=== PATIENT | male | born 1955 | race Caucasian/White ===

== ENCOUNTER 2016-12-15 11:01 | Emergency (ER) | payer OTHER ==
[~2016-12-15] VITALS: Ht 170.2 cm; Wt 87.1 kg
[~2016-12-15 11:01] MED LIST: ALLOPURINOL300 M1 PO; ALPRAZOLAM0.5 M4 PO; ASPIR 8181 MG PO; BYSTOLIC2.5 M1 PO; DOCUSATE SODIU100 MG PO; HYDROCODONE/ACE1 TA1 PO; PERCOCET 325 MG1 TA2 PO; VALACYCLOVIR1 GM PO; ZOFRAN ODT4 MG SL
--- NOTE | 2016-12-15 11:50 | ED GENERAL ADULT ---
History of Present Illness General Chief Complaint: Low Back Pain/Injury Stated Complaint: BACK PAIN Source: patient, family, old records Exam Limitations: no limitations Vital Signs & Intake/Output Vital Signs & Intake/Output Vital Signs Date Time Temp Pulse Resp B/P Pulse O2 O2 Flow FiO2 Ox Delivery Rate 12/15 1211 98.7 80 18 132/76 100 Room Air 12/15 1105 97.9 89 16 142/82 98 Room Air ED Intake and Output 12/16 0000 12/15 1200 Intake Total 0 Output Total Balance 0 Intake, Oral 0 Patient 192 lb Weight Allergies Coded Allergies: fentanyl (Severe, RASH FROM PATCH COULD BE ADHESIVE 12/15/16) Triage Note: 61 Y/O MALE C/O R SHOULDER PAIN AND L FLANK PAIN. STATES HE HAS A KNOWN 8MM STONE AND PAIN HAS BEEN WORSENING SINCE THIS AM. ALSO HAS PAIN IN R SHOULDER S/P LIFTING AUTISTIC SON YESTERDAY. HAS TAKEN 3 TABS PERCOCET SINCE 0700 TODAY (LAST DOSE 1000) WITH NO RELIEF. DUE FOR CT [facility]AN [facility]. Triage Nurses Notes Reviewed? yes HPI: Patient is a 61 year old male presents complaining of pain to his right scapula. Pain began this morning. Pain is a sharp pain that radiates up to his neck, down his back and down his right upper extremity. Pain worsens with shoulder range of motion and with palpation. Patient reports he was lifting his son yesterday who is approximately 160 pounds, did not feel a specific injury at that time. Patient has been taking Tylenol with codeine with mild improvement. Patient has taken 3 doses today. Pain is currently an 8 out of 10, was 10 out of 10 prior to arrival. Patient also complaining of bilateral flank pain. Patient has a known 8 mm ureteral stone and 3 mm right ureteral stone. Patient is scheduled to have a CT scan at 1:30 PM today for further surveillance and evaluation. Pain to the left flank is currently 4 out of 10. Pain improves with the Tylenol with Codeine. (LISS TORRES) Reconcile Medications Allopurinol 300 MG TABLET 1 TAB PO DAILY GOUT (Reported) Alprazolam 0.5 MG TABLET 1 TAB PO BIDP PRN ANXIETY (Reported) Bupropion HCl (Bupropion XL) 300 MG TAB.ER.24H 1 TAB PO QAM MENTAL HEALTH ( Reported) Cyclobenzaprine HCl 10 MG TABLET 1 TAB PO TID PRN MUSCLE RELAXANT MAY CAUSE DROWSINESS Diazepam (Valium) 5 MG TABLET 1-2 TAB PO Q6P PRN muscle strain/spasm Hydrochlorothiazide 12.5 MG CAPSULE 1 CAP PO DAILY WATER PILL (Reported) Ibuprofen 600 MG TABLET 1 TAB PO Q6PRN PRN pain with food Nebivolol HCl (Bystolic) 2.5 MG TABLET 1 TAB PO DAILY HEART (Reported) Oxycodone HCl/Acetaminophen (Percocet 5-325 MG Tablet) 5 MG-325 MG TABLET 1-2 TAB PO Q6P PRN severe pain Sertraline HCl 50 MG TABLET 1 TAB PO DAILY MENTAL HEALTH (Reported) (HERNAN MARTÍNEZ,WESTON) Past History Travel History Traveled to [place] past 21 day No Medical History Any Pertinent Medical History? 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 No (LISS TORRES) Review of Systems Review of Systems Constitutional: Denies: chills, fever. EENTM: Reports: no symptoms. Respiratory: Denies: cough, short of breath. Cardiovascular: Denies: chest pain. GI: Denies: nausea, vomiting. Genitourinary: Reports: pain (current renal colic). Musculoskeletal: Reports: see HPI. Skin: Reports: no symptoms. Neurological/Psychological: Reports: no symptoms. Hematologic/Endocrine: Reports: no symptoms. Immunologic/Allergic: Reports: no symptoms. (LISS TORRES) Physical Exam Physical Exam General Appearance: well developed/nourished, alert, awake Head: atraumatic, normal appearance Eyes: Bilateral: normal appearance. Ears, Nose, Throat: normal pharynx, hearing grossly normal Neck: normal inspection, supple, full range of motion, no midline tenderness Respiratory: normal breath sounds, chest non-tender, no respiratory distress, lungs clear Cardiovascular: regular rate/rhythm Peripheral Pulses: 2+ radial (R) Gastrointestinal: soft, non-tender Back: point tenderness over the right medial trapezius muscle. Extremities: mild tenderness right posterior shoulder. Full range of motion. Pain increases with full abduction and flexion. Neurologic/Psych: no motor/sensory deficits, awake, alert, oriented x 3, normal gait, normal mood/affect Skin: intact, normal color, warm/dry Lymphatic: no anterior cervical cata Core Measures ACS in differential dx? No CVA/TIA Diagnosis: No Severe Sepsis Present: No Septic Shock Present: No (LISS TORRES) Progress Differential Diagnoses I considered the following diagnoses in my evaluation of the patient: Muscle strain, rotator cuff injury, nerve impingement, acromioclavicular separation, renal colic, biliary colic Plan of Care: Patient requesting injection to the area of his upper back that has the majority of the pain. Procedure note: Trigger point injection: Prepped area with chlorhexidine wipe. 1% lidocaine 3 mL injected to right medial mid trapezius muscle with improvement of patient's pain. Initial ED EKG: none (LISS TORRES) Departure Departure Time of Disposition: 120 Disposition: HOME OR SELF CARE Condition: Stable Clinical Impression Primary Impression: Trapezius strain Qualifiers: Encounter type: initial encounter Laterality: right Qualified Code: S46.811A - Strain of other muscles, fascia and tendons at shoulder and upper arm level, right arm, initial encounter Referrals: LUIS A MARTÍNEZ,CATIE Matson (PCP/Family) Additional Instructions: Rest, apply heat the affected area for 20 minutes 4-5 times a day. Follow up with your primary care doctor if no improvement within 2-3 days. Return to the emergency department if numbness, weakness, or worsening of symptoms. Departure Forms: Customer Survey General Discharge Information Prescriptions: Current Visit Scripts Cyclobenzaprine HCl 1 TAB PO TID PRN MUSCLE RELAXANT #20 TAB MAY CAUSE DROWSINESS (LISS TORRES) PA/CENTRAL STERILIZATION TECHNICIAN Co-Sign Statement Statement: ED Attending supervision documentation- [] I saw and evaluated the patient. I have also reviewed all the pertinent lab results and diagnostic results. I agree with the findings and the plan of care as documented in the PA's/CENTRAL STERILIZATION TECHNICIAN's documentation. [X] I have reviewed the ED Record and agree with the PA's/CENTRAL STERILIZATION TECHNICIAN's documentation. [] Additions or exceptions (if any) to the PAs/CENTRAL STERILIZATION TECHNICIAN's note and plan are summarized below: [] (HERNAN MARTÍNEZ,WESTON) Critical Care Note Critical Care Note Critical Care Time: non-applicable (RYAN WASHINGTON,LISS)
[2016-12-15] MEDS ORDERED: SERTRALINE HCL50 MG PO (12:07)
[2016-12-15] MEDS ORDERED: HYDROCHLOROTH12.5 M3 PO (12:08)
[2016-12-15] MEDS ORDERED: BUPROPION XL300 M1 PO (12:08)
[2016-12-15] MEDS ORDERED: CYCLOBENZAPRINE10 M1 PO (12:10)
[2016-12-15 12:11] VITALS: BP 132/76
[2016-12-16] MEDS ORDERED: PERCOCET 5-3251 EACH PO (08:25)
[2016-12-16] MEDS ORDERED: VALIUM5 M2 PO (08:25)
[2016-12-16] MEDS ORDERED: IBUPROFEN600 M1 PO (08:25)
== END 2016-12-15 12:10 ==
LOC: ERH 11:01
DX: S46.911A Strain of unspecified muscle, fascia and tendon at shoulder and upper arm level, right arm, initial encounter (principal); X58.XXXA Exposure to other specified factors, initial encounter

== ENCOUNTER 2016-12-15 21:55 | Emergency (ER) | payer OTHER ==
[~2016-12-15] VITALS: Ht 170.2 cm; Wt 87.1 kg
[~2016-12-15 21:55] MED LIST changes: +BUPROPION XL300 M1 PO; +CYCLOBENZAPRINE10 M1 PO; +HYDROCHLOROTH12.5 M3 PO; +SERTRALINE HCL50 MG PO
--- NOTE | 2016-12-15 23:45 | ED NECK/BACK PAIN COMPLAINT ---
History of Present Illness General Chief Complaint: Low Back Pain/Injury Stated Complaint: BACK PAIN Source: patient, family, old records Exam Limitations: no limitations Vital Signs & Intake/Output Vital Signs & Intake/Output Vital Signs Date Time Temp Pulse Resp B/P Pulse O2 O2 Flow FiO2 Ox Delivery Rate 12/16 0807 98.2 68 18 127/84 99 Room Air 12/16 0616 96.2 64 20 124/76 98 Room Air 12/16 0035 97.1 74 20 112/67 98 Room Air 12/15 2237 81 22 132/76 12/15 2204 98.2 77 18 126/85 96 Room Air ED Intake and Output 12/16 0000 12/15 1200 Intake Total 30 Output Total Balance 30 Intake, Oral 30 Patient 192 lb Weight Allergies Coded Allergies: fentanyl (Severe, RASH FROM PATCH COULD BE ADHESIVE 12/15/16) Triage Note: PT TO ED C/O CONTINUED RT SHOULDER PAIN THAT GOES DOWN ARM GIVING HIM WITH TINGELING AND BURNING IN HIS FINGERS, SINCE 8 AM THIS AM. WAS SEEN FOR SAME THIS AM. HAD CT TODAY. TOOK FLEXERIL. BP 126/85 AND HR 77. PT STATES "I'M IN [place]" Triage Nurses Notes Reviewed? yes HPI: Earlier this morning the patient's autistic son was having a fit and threw himself on the floor. The patient pulled him up and felt a sudden pulling sensation in the posterior aspect of his right shoulder. Patient was seen here in the emergency room and was prescribed Flexeril and then sent home. The pain is escalated and is now radiating down his right arm and his right fingers are feeling to feel tingly. Patient has Tylenol with Codeine at home from prior kidney stones and has taken multiple doses of that as well as a Flexeril as prescribed and the pain continues to escalate and is currently 10 out of 10. Patient was unable to sleep because the pain. The pain is constant and is throbbing but aching in nature. It radiates as noted above. There are no mitigating factors and a Little bit worse when he moves his right shoulder. (LAMBERTO MARTÍNEZ,CHARLENE Hanson) Reconcile Medications Allopurinol 300 MG TABLET 1 TAB PO DAILY GOUT (Reported) Alprazolam 0.5 MG TABLET 1 TAB PO BIDP PRN ANXIETY (Reported) Bupropion HCl (Bupropion XL) 300 MG TAB.ER.24H 1 TAB PO QAM MENTAL HEALTH ( Reported) Cyclobenzaprine HCl 10 MG TABLET 1 TAB PO TID PRN MUSCLE RELAXANT MAY CAUSE DROWSINESS Diazepam (Valium) 5 MG TABLET 1-2 TAB PO Q6P PRN muscle strain/spasm Hydrochlorothiazide 12.5 MG CAPSULE 1 CAP PO DAILY WATER PILL (Reported) Ibuprofen 600 MG TABLET 1 TAB PO Q6PRN PRN pain with food Nebivolol HCl (Bystolic) 2.5 MG TABLET 1 TAB PO DAILY HEART (Reported) Oxycodone HCl/Acetaminophen (Percocet 5-325 MG Tablet) 5 MG-325 MG TABLET 1-2 TAB PO Q6P PRN severe pain Sertraline HCl 50 MG TABLET 1 TAB PO DAILY MENTAL HEALTH (Reported) (FLAKITA ELIZALDE MD) Past History Travel History Traveled to [place] past 21 day No Medical History Any Pertinent Medical History? 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 No (LAMBERTO MARTÍNEZ,CHARLENE Hanson) Review of Systems Review of Systems Constitutional: Reports: no symptoms. Eyes: Reports: no symptoms. Ears, Nose, Throat, Mouth: Reports: no symptoms. Respiratory: Reports: no symptoms. Cardiovascular: Reports: no symptoms. Gastrointestinal/Abdominal: Reports: no symptoms. Musculoskeletal: Reports: see HPI, back pain. Skin: Reports: no symptoms. Neurological/Psychological: Reports: no symptoms. All Other Systems: Reviewed and Negative (LAMBERTO MARTÍNEZ,CHARLENE Hanson) Physical Exam Physical Exam General Appearance: well developed/nourished, alert, awake, anxious, severe distress Head: atraumatic, normal appearance Eyes: Bilateral: PERRL, EOMI. Ears, Nose, Throat, Mouth: hearing grossly normal, moist mucous membrane Neck: normal inspection, supple, full range of motion, no midline tenderness Respiratory: normal breath sounds, no respiratory distress, lungs clear Cardiovascular: regular rate/rhythm, normal peripheral pulses Gastrointestinal: normal bowel sounds, soft, non-tender Back: normal inspection, muscle spasm, no vertebral tenderness Extremities: non-tender, normal range of motion Neurologic/Psych: awake, alert, oriented x 3, normal mood/affect Skin: intact, normal color, warm/dry (LAMBERTO MARTÍNEZ,CHARLENE Hanson) Progress Differential Diagnosis: C spine injury, herniated disc, myofascial strain Plan of Care: Orders Procedure Date/time Status Regular Diet 12/16 B Active Durable Medical Equipment 12/16 0828 Active Hand-Off Endorsed To: FLAKITA ELIZALDE MD Endorsed Time: 0700 Pending: CT Comments: PT'S IS VERY UPSET THAT ALL WE CAN DO IS GIVE HIM VALIUM AND NSAIDS AND NOT GET THE MRI TONIGHT AND THAT WE DON'T SEEM TO REALIZE THAT HE IS IN PAIN. I HAVE SPOKEN WITH HER AT LENGTH AND ASKED HER FOR OTHER SUGGESTIONS. PT IS UNDERSTANDING OF THE TREATMENT PLAN AND AGREES WITH IT. Patient states that he is feeling slightly better after the Valium and Toradol. The pain had decreased down to a 6 out of 10 however when he sat up and again increased to an 8 out of 10. Patient advised just to lay down and take it easy and we will reevaluate him. 12/16/2016 2:23:52 AM: Patient is sleeping comfortably. 12/16/2016 5:55:52 AM: Patient states that the Valium helped him sleep a little bit however he still in 10 out of 10 pain and continues to have the tingling in his right fingers. (LAMBERTO MARTÍNEZ,CHARLENE Hanson) Diagnostic Imaging: Viewed by Me: CT Scan. Discussed w/RAD: CT Scan. Radiology Impression: There is multilevel degenerative spondylosis of the cervical spine that is most advanced at the levels of C4-C5 and C5-C6. There appears be mild canal stenosis at C4-C5. The canal is not well assessed at C5-C6 however it is suspected that there is at least mild canal stenosis at this level. If there is a clinical concern for compressive myelopathy then a dedicated cervical spine MRI should be obtained. At C4-C5 there is a moderate bilateral neuroforaminal encroachment. At C5-C6 there is severe right and moderate left neuroforaminal encroachment. Comments: Feels better. Updated with CT findings. Point tender @ R inferomedial scapular area worse with movement of RUE (FLAKITA ELIZALDE MD) Departure Departure Condition: Stable Clinical Impression Primary Impression: Cervical radiculopathy Departure Forms: Customer Survey General Discharge Information (LAMBERTO MARTÍNEZ,CHARLENE Hanson) Departure Time of Disposition: 821 Disposition: HOME OR SELF CARE Referrals: SHANTAL MARTÍNEZ,EDIL Burden Call for neurosurgery follow up LIYAH MARTÍNEZ,BECKY GUNN MD,CATIE Matson (PCP/Family) Additional Instructions: Call for orthopedic follow up Prescriptions: Current Visit Scripts Oxycodone HCl/Acetaminophen (Percocet 5-325 MG Tablet) 1-2 TAB PO Q6P PRN severe pain #20 TAB Diazepam (Valium) 1-2 TAB PO Q6P PRN muscle strain/spasm #30 TAB Ibuprofen 1 TAB PO Q6PRN PRN pain #50 TAB with food (FIDE MARTÍNEZ,FLAKITA)
--- NOTE | 2016-12-16 06:57 | CT SCAN REPORT ---
EXAMINATION: CT CERVICAL SPINE WITHOUT CONTRAST CLINICAL INFORMATION: Severe neck and right shoulder pain. COMPARISON: No relevant prior imaging available. TECHNIQUE: Sales And Service Technician images were obtained. CT acquisition of the cervical spine was performed without intravenous administration of contrast. Data was reformatted into multiplanar images at the acquisition workstation. DLP: 347.78 mGy-cm FINDINGS: There is nonspecific straightening of the cervical lordosis. Vertebral alignment is otherwise maintained in the sagittal dimension. Vertebral body heights are preserved. There is no acute fracture. No abnormal prevertebral soft tissue swelling. There is loss of intervertebral disc height with associated sclerotic degenerative endplate changes and disc osteophyte spurring at the levels of C4-C5 and C5-C6. At C4-C5 there is a diffusely bulging disc causing ventral flattening of the thecal sac. There is at least mild canal stenosis at this level. Uncovertebral joint hypertrophy and facet degenerative change causes moderate bilateral neuroforaminal encroachment. At C5-C6 there is a diffusely bulging disc causing ventral flattening of the thecal sac. The canal is not well assessed at this level. A suspected that there is at least mild canal stenosis. Uncovertebral joint hypertrophy and facet degenerative change causes severe right and moderate left neuroforaminal encroachment. Soft tissues of the neck including the thyroid gland are unremarkable. Limited visualization of the intracranial structures reveals no abnormal finding. IMPRESSION: There is multilevel degenerative spondylosis of the cervical spine that is most advanced at the levels of C4-C5 and C5-C6. There appears be mild canal stenosis at C4-C5. The canal is not well assessed at C5-C6 however it is suspected that there is at least mild canal stenosis at this level. If there is a clinical concern for compressive myelopathy then a dedicated cervical spine MRI should be obtained. At C4-C5 there is a moderate bilateral neuroforaminal encroachment. At C5-C6 there is severe right and moderate left neuroforaminal encroachment.
[2016-12-16 08:07] VITALS: BP 127/84
[2016-12-16] MEDS ORDERED: VALIUM5 M2 PO (08:25)
[2016-12-16] MEDS ORDERED: IBUPROFEN600 M1 PO (08:25)
[2016-12-16] MEDS ORDERED: PERCOCET 5-3251 EACH PO (08:25)
== END 2016-12-16 08:46 ==
LOC: ERH 21:55
DX: M54.12 Radiculopathy, cervical region (principal)
CPT/HCPCS: 96372; J1885; J3360